=== PATIENT | female | born 2000 | race Caucasian/White ===

== ENCOUNTER 2018-04-02 19:48 | Emergency (ER) | payer SELFPAY ==
--- NOTE | 2018-04-02 20:20 | EDM.PDOC ---
ED HPI GENERAL MEDICAL PROBLEM - General Chief Complaint: Allergic Reaction Stated Complaint: rash on head and ears Time Seen by Provider: 04/02/18 20:04 Source of Information: Reports: Patient History Limitations: Reports: No Limitations - History of Present Illness INITIAL COMMENTS - FREE TEXT/NARRATIVE: HISTORY AND PHYSICAL: History of present illness: Patient is a 17-year-old female who presents to the emergency room with complaints of an allergic reaction. She states approximately 2 weeks ago she was getting her hair dyed when she started to develop itching and redness around her scalp. Since that time she has been picking and scratching at her scalp and ears. The redness has increased and she has some drainage coming from soft tissue of bilateral pinna. She does have some open sores to the base of her neck. Patient has not used any [id number] products. Denies any fever, chills, chest pain, shortness of breath or cough. Denies any GI or symptoms. Review of systems: As per history of present illness and below otherwise all systems reviewed and negative. Past medical history: As per history of present illness and as reviewed below otherwise noncontributory. Surgical history: As per history of present illness and as reviewed below otherwise noncontributory. Social history: No reported history of drug or alcohol abuse. Family history: As per history of present illness and as reviewed below otherwise noncontributory. Physical exam: General: Well-developed and well-nourished 17-year-old female. Alert and oriented. Nontoxic appearing and in no acute distress. HEENT: Atraumatic, normocephalic, pupils equal and reactive bilaterally, negative for conjunctival pallor or scleral icterus, mucous membranes moist, throat clear, neck supple, nontender, trachea midline. No drooling or trismus noted. No meningeal signs. See skin for details. Lungs: Clear to auscultation, breath sounds equal bilaterally, chest nontender. Heart: S1S2, regular rate and rhythm without overt murmur Abdomen: Soft, nondistended, nontender. Negative for masses or hepatosplenomegaly. Negative for costovertebral tenderness. Pelvis: Stable nontender. Genitourinary: Deferred. Rectal: Deferred. Skin: Patient has erythema around the scalp border of her hairline. The soft tissue of the pinna bilaterally is erythematous with mild swelling and tenderness. She does have some clear yellow drainage from the sites. This soft tissue swelling does not extend into the internal canal. Small open sores noted to the nape/base of neck. Extremities: Atraumatic, negative for cords or calf pain. Neurovascular unremarkable. Neuro: Awake, alert, oriented. Cranial nerves II through XII unremarkable. Cerebellum unremarkable. Motor and sensory unremarkable throughout. Exam nonfocal. Notes: Will place patient on Bactrim DS and Medrol Dosepak. Shot of Solu-Medrol and Benadryl while here. Supportive care measures were reviewed and discussed. Signs and symptoms that would prompt her to return to the emergency room were reviewed and discussed. She is new to our community, encouraged her to establish care with a primary care provider for further evaluation and management. She voices understanding and is agreeable to plan of care. Denies any further questions or concerns at this time. Diagnostics: [] Therapeutics: Solumedrol, Bactrim DS, Benadryl Impression: Dermatitis Cellulitis Plan: 1. Take the antibiotic and steroid as prescribed. (You may crush these pills and mix in pudding/apple sauce) 2. Take over the counter benadryl routinely over the next couple days. 3. Avoid hot showers as this can increase itching. 4. Follow up with primary care provider in the next 1-2 days. Return to the ED as needed and as discussed. Definitive disposition and diagnosis as appropriate pending reevaluation and review of above. Duration: Week(s): - Related Data Allergies Allergy/AdvReac Type Severity Reaction Status Date / Time Penicillins Allergy Cannot Verified 04/02/18 19:58 Remember hair dye Allergy Rash Uncoded 04/02/18 19:58 Home Meds: Home Meds . 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 ED EXAM GENERAL NO PERIP PULSE - Physical Exam Exam: See Below (See dictation) Course - Vital Signs Last Recorded V/S: Last Vital Signs Temp 98.3 F 04/02/18 19:48 Pulse 122 H 04/02/18 19:48 Resp 16 04/02/18 19:48 BP 130/77 04/02/18 19:48 Pulse Ox 97 04/02/18 19:48 - Orders/Labs/Meds Meds: Medications Discontinued Medications Generic Name Dose Route Start Last Admin Trade Name Froilan PRN Reason Stop Dose Admin Diphenhydramine HCl 50 mg 04/02/18 20:21 04/02/18 20:36 Benadryl PO 04/02/18 20:22 Not Given ONETIME ONE Diphenhydramine HCl 50 mg 04/02/18 20:34 04/02/18 20:36 Benadryl IM 04/02/18 20:35 50 mg ONETIME ONE Administration Methylprednisolone Sodium Succinate 125 mg 04/02/18 20:21 04/02/18 20:31 Solu-Medrol IM 04/02/18 20:22 125 mg ONETIME ONE Administration Departure - Departure Time of Disposition: 20:20 Disposition: Home, Self-Care 01 Clinical Impression: Dermatitis Cellulitis Qualifiers: Site of cellulitis: head Qualified Code(s): L03.811 - Cellulitis of head [any part, except face] - Discharge Information Instructions: Cellulitis, Adult, [id number] Referrals: PCP,None [Primary Care Provider] - Additional Instructions: The following information is given to patients seen in the emergency department who are being discharged to home. This information is to outline your options for follow-up care. We provide all patients seen in our emergency department with a follow-up referral. The need for follow-up, as well as the timing and circumstances, are variable depending upon the specifics of your emergency department visit. If you don't have a primary care physician on staff, we will provide you with a referral. We always advise you to contact your personal physician following an emergency department visit to inform them of the circumstance of the visit and for follow-up with them and/or the need for any referrals to a consulting specialist. The emergency department will also refer you to a specialist when appropriate. This referral assures that you have the opportunity for follow-up care with a specialist. All of these measure are taken in an effort to provide you with optimal care, which includes your follow-up. Under all circumstances we always encourage you to contact your private physician who remains a resource for coordinating your care. When calling for follow-up care, please make the office aware that this follow-up is from your recent emergency room visit. If for any reason you are refused follow-up, please contact the [facility] Emergency Department at and asked to speak to the emergency department charge nurse. [facility] [address] [place] [id number] 1. Take the antibiotic and steroid as prescribed. (You may crush these pills and mix in pudding/apple sauce) 2. Take over the counter Benadryl routinely over the next couple days. 3. Avoid hot showers as this can increase itching. 4. Follow up with primary care provider in the next 1-2 days. Return to the ED as needed and as discussed.
[2018-04-02] MEDS ORDERED: methylPREDNISolone Sodium Succinate 125 MG/2 ML SDV IM ONE (20:21)
[2018-04-02] MEDS: diphenhydrAMINE 50 MG Cap PO ONE ×2 (20:31→20:36)
[2018-04-02] MEDS ORDERED: diphenhydrAMINE 50 MG/ML SDV IM ONE (20:34)
[2018-04-02] MEDS ORDERED: Sulfamethoxazole/Trimethoprim 800-160 MG Tab PO ONE (20:46)
== END 2018-04-02 21:10 | disposition home or self-care (01) ==
LOC: MW.ED 19:48
DX: L03.811 Cellulitis of head [any part, except face] (principal); L30.9 Dermatitis, unspecified; Z88.0 Allergy status to penicillin; Z91.09 Other allergy status, other than to drugs and biological substances
CPT/HCPCS: 96372; 99283; A9270; J1200; J2930

== ENCOUNTER 2018-04-29 07:48 | Emergency (ER) | payer SELFPAY ==
--- NOTE | 2018-04-29 08:00 | EDM.PDOC ---
ED HPI GENERAL MEDICAL PROBLEM - General Chief Complaint: Allergic Reaction Stated Complaint: ALLERGIC REACTION Time Seen by Provider: 04/29/18 07:57 - History of Present Illness INITIAL COMMENTS - FREE TEXT/NARRATIVE: HISTORY AND PHYSICAL: History of present illness: Patient is a 17-year-old female presents with a concern of presumptive allergic dermatitis related to hair dye she dyed her hair yesterday noted itching and erythema of her scalp is no tongue or lip swelling no trouble breathing no shortness of breath nausea vomiting or other complaints Review of systems: As per history of present illness and below otherwise all systems reviewed and negative. Past medical history: As per history of present illness and as reviewed below otherwise noncontributory. Surgical history: As per history of present illness and as reviewed below otherwise noncontributory. Social history: No reported history of drug or alcohol abuse. Family history: As per history of present illness and as reviewed below otherwise noncontributory. Physical exam: HEENT: Atraumatic, normocephalic, pupils reactive, negative for conjunctival pallor or scleral icterus, mucous membranes moist, throat clear, neck supple, nontender, trachea midline. Patient is noted have some erythema and maculopapular type lesions of her scalp. Lungs: Clear to auscultation, breath sounds equal bilaterally, chest nontender. Heart: S1S2, regular, negative for clicks, rubs, or JVD. Abdomen: Soft, nondistended, nontender. Negative for masses or hepatosplenomegaly. Negative for costovertebral tenderness. Pelvis: Stable nontender. Genitourinary: Deferred. Rectal: Deferred. Extremities: Atraumatic, negative for cords or calf pain. Neurovascular unremarkable. Neuro: Awake, alert, oriented. Cranial nerves II through XII unremarkable. Cerebellum unremarkable. Motor and sensory unremarkable throughout. Exam nonfocal. Diagnostics: None Therapeutics: None Impression: #1 allergic dermatitis Definitive disposition and diagnosis as appropriate pending reevaluation and review of above. - Related Data Allergies Allergy/AdvReac Type Severity Reaction Status Date / Time Penicillins Allergy Cannot Verified 04/29/18 07:54 Remember hair dye Allergy Rash Uncoded 04/02/18 19:58 Home Meds: Home Meds . 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 ED EXAM GENERAL NO PERIP PULSE - Physical Exam Exam: See Below (See dictation) Course - Vital Signs Last Recorded V/S: Last Vital Signs Temp 36.8 C 04/29/18 07:51 Pulse 122 H 04/29/18 07:51 Resp 18 04/29/18 07:51 BP 126/75 04/29/18 07:51 Pulse Ox 98 04/29/18 07:51 Departure - Departure Time of Disposition: 08:00 Disposition: Home, Self-Care 01 Condition: Good Clinical Impression: Dermatitis - Discharge Information *PRESCRIPTION DRUG MONITORING PROGRAM REVIEWED*: Not Applicable *COPY OF PRESCRIPTION DRUG MONITORING REPORT IN PATIENT SILVIA: Not Applicable Additional Instructions: The following information is given to patients seen in the emergency department who are being discharged to home. This information is to outline your options for follow-up care. We provide all patients seen in our emergency department with a follow-up referral. The need for follow-up, as well as the timing and circumstances, are variable depending upon the specifics of your emergency department visit. If you don't have a primary care physician on staff, we will provide you with a referral. We always advise you to contact your personal physician following an emergency department visit to inform them of the circumstance of the visit and for follow-up with them and/or the need for any referrals to a consulting specialist. The emergency department will also refer you to a specialist when appropriate. This referral assures that you have the opportunity for followup care with a specialist. All of these measure are taken in an effort to provide you with optimal care, which includes your followup. Under all circumstances we always encourage you to contact your private physician who remains a resource for coordinating your care. When calling for followup care, please make the office aware that this follow-up is from your recent emergency room visit. If for any reason you are refused follow-up, please contact the [facility] emergency department at and asked to speak to the emergency department charge nurse. Chelly as directed follow-up private medical doctor as needed as discussed return as needed as discussed
== END 2018-04-29 08:08 | disposition home or self-care (01) ==
LOC: MW.ED 07:48
DX: L30.9 Dermatitis, unspecified (principal); F17.210 Nicotine dependence, cigarettes, uncomplicated; Z88.0 Allergy status to penicillin; Z91.09 Other allergy status, other than to drugs and biological substances
CPT/HCPCS: 99282; 99283

== ENCOUNTER 2018-12-06 20:25 | Emergency (ER) | payer SELFPAY ==
[2018-12-06] MEDS ORDERED: Sodium Chloride 0.9% 1,000 ML IV ONE (20:50)
--- NOTE | 2018-12-06 20:54 | EDM.PDOC ---
ED HPI GENERAL MEDICAL PROBLEM - General Chief Complaint: General Stated Complaint: DIZZY, LIGHT HEADED Time Seen by Provider: 12/06/18 20:47 - History of Present Illness INITIAL COMMENTS - FREE TEXT/NARRATIVE: HISTORY AND PHYSICAL: History of present illness: Patient is a 18-year-old white female presents with concern of generalized weakness she states she's been exercising strenuously recently and not eating properly she denies any chance of a fever chills nausea vomiting or other complaints Review of systems: As per history of present illness and below otherwise all systems reviewed and negative. Past medical history: As per history of present illness and as reviewed below otherwise noncontributory. Surgical history: As per history of present illness and as reviewed below otherwise noncontributory. Social history: No reported history of drug or alcohol abuse. Family history: As per history of present illness and as reviewed below otherwise noncontributory. Physical exam: HEENT: Atraumatic, normocephalic, pupils reactive, negative for conjunctival pallor or scleral icterus, mucous membranes dry, throat clear, neck supple, nontender, trachea midline. Lungs: Clear to auscultation, breath sounds equal bilaterally, chest nontender. Heart: S1S2, regular, negative for clicks, rubs, or JVD. Abdomen: Soft, nondistended, nontender. Negative for masses or hepatosplenomegaly. Negative for costovertebral tenderness. Pelvis: Stable nontender. Genitourinary: Deferred. Rectal: Deferred. Extremities: Atraumatic, negative for cords or calf pain. Neurovascular unremarkable. Neuro: Awake, alert, oriented. Cranial nerves II through XII unremarkable. Cerebellum unremarkable. Motor and sensory unremarkable throughout. Exam nonfocal. Diagnostics: CBC CMP UA hCG EKG Therapeutics: Saline 1 L bolus Impression: #1 weakness #2 dehydration Definitive disposition and diagnosis as appropriate pending reevaluation and review of above. - Related Data Allergies Allergy/AdvReac Type Severity Reaction Status Date / Time Penicillins Allergy Cannot Verified 12/06/18 20:40 Remember hair dye Allergy Rash Uncoded 04/02/18 19:58 Home Meds: Home Meds . 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 ED EXAM, GENERAL - Physical Exam Exam: See Below (See dictation) Course - Vital Signs Last Recorded V/S: Last Vital Signs Temp 36.6 C 12/06/18 20:40 Pulse 119 H 12/06/18 20:40 Resp 18 12/06/18 20:40 BP 117/69 12/06/18 20:40 Pulse Ox 98 12/06/18 20:40 - Orders/Labs/Meds Orders: Active Orders 24 hr Category Date Time Status CBC WITH AUTO DIFF [HEME] Stat Lab 12/06/18 20:50 Ordered COMPREHENSIVE METABOLIC PN,CMP [CHEM] Stat Lab 12/06/18 20:50 Ordered HCG QUALITATIVE,SERUM [CHEM] Stat Lab 12/06/18 20:50 Ordered UA RFX FADY AND CULT IF INDIC [URIN] Stat Lab 12/06/18 20:50 Ordered Sodium Chloride 0.9% [Normal Saline] 1,000 ml Med 12/06/18 20:50 Active IV STAT Medication Orders Sodium Chloride (Normal Saline) 1,000 mls @ 999 mls/hr IV STAT ONE Stop: 12/06/18 21:50 Meds: Medications Generic Name Dose Route Start Last Admin Trade Name Freq PRN Reason Stop Dose Admin Sodium Chloride 1,000 mls @ 999 mls/hr 12/06/18 20:50 Normal Saline IV 12/06/18 21:50 STAT ONE Departure - Departure Time of Disposition: 20:53 Disposition: Home, Self-Care 01 Condition: Good Clinical Impression: Dehydration, Encounter for medical screening examination - Discharge Information Referrals: PCP,None [Primary Care Provider] - Additional Instructions: The following information is given to patients seen in the emergency department who are being discharged to home. This information is to outline your options for follow-up care. We provide all patients seen in our emergency department with a follow-up referral. The need for follow-up, as well as the timing and circumstances, are variable depending upon the specifics of your emergency department visit. If you don't have a primary care physician on staff, we will provide you with a referral. We always advise you to contact your personal physician following an emergency department visit to inform them of the circumstance of the visit and for follow-up with them and/or the need for any referrals to a consulting specialist. The emergency department will also refer you to a specialist when appropriate. This referral assures that you have the opportunity for followup care with a specialist. All of these measure are taken in an effort to provide you with optimal care, which includes your followup. Under all circumstances we always encourage you to contact your private physician who remains a resource for coordinating your care. When calling for followup care, please make the office aware that this follow-up is from your recent emergency room visit. If for any reason you are refused follow-up, please contact the [facility] emergency department at and asked to speak to the emergency department charge nurse. Push fluids irregularly follow-up primary medical doctor as needed as discussed and return as needed as discussed - My Orders Last 24 Hours: My Active Orders 12/06/18 20:50 CBC WITH AUTO DIFF [HEME] Stat COMPREHENSIVE METABOLIC PN,CMP [CHEM] Stat HCG QUALITATIVE,SERUM [CHEM] Stat UA RFX FADY AND CULT IF INDIC [URIN] Stat Sodium Chloride 0.9% [Normal Saline] 1,000 ml IV STAT - Assessment/Plan Last 24 Hours: My Active Orders 12/06/18 20:50 CBC WITH AUTO DIFF [HEME] Stat COMPREHENSIVE METABOLIC PN,CMP [CHEM] Stat HCG QUALITATIVE,SERUM [CHEM] Stat UA RFX FADY AND CULT IF INDIC [URIN] Stat Sodium Chloride 0.9% [Normal Saline] 1,000 ml IV STAT
[2018-12-06 21:44] LABS: CHLORIDE,CL 106 mmol/L (98-107); SODIUM,NA 142 mmol/L (136-145)
== END 2018-12-06 21:58 | disposition home or self-care (01) ==
LOC: MW.ED 20:25
DX: E86.0 Dehydration (principal); R53.1 Weakness; F17.210 Nicotine dependence, cigarettes, uncomplicated; Z88.0 Allergy status to penicillin
CPT/HCPCS: 36415; 80053; 81001; 84703; 85025; 87086; 93005; 96360; 99284; J7040

== ENCOUNTER 2019-02-07 19:31 | Emergency (ER) | payer MEDICAID, OTHER ==
[2019-02-07] MEDS ORDERED: Sodium Chloride 0.9% 1,000 ML IV ONE (19:44)
[2019-02-07] MEDS ORDERED: diphenhydrAMINE 50 MG/ML SDV IVPUSH ONE (19:44)
[2019-02-07] MEDS ORDERED: methylPREDNISolone Sodium Succinate 125 MG/2 ML SDV IVPUSH ONE (19:45)
--- NOTE | 2019-02-07 19:46 | EDM.PDOC ---
ED HPI GENERAL MEDICAL PROBLEM - General Chief Complaint: Skin Complaint Stated Complaint: HIVES/RASH Time Seen by Provider: 02/07/19 19:33 Source of Information: Reports: Patient History Limitations: Reports: No Limitations - History of Present Illness INITIAL COMMENTS - FREE TEXT/NARRATIVE: HISTORY AND PHYSICAL: History of present illness: Patient is a 18-year-old female who presents to the emergency room with complaints of rash to her hands and feet 1 week. She states that this rash has not worsened, although continues to have a burning and itching sensation. Rash is sparse and localized to hands and feet (sparing the rossi and plantar surface). She has not used any [id number] products to help alleviate her symptoms. Denies any contact with any triggering materials. Patient denies any fever, chills, headache, change in vision, syncope or near syncope. Denies any chest pain, back pain, shortness of breath or cough. Denies any abdominal pain, nausea, vomiting, diarrhea, constipation or dysuria. Has not noted any blood in urine or stool. Patient has been eating and drinking appropriately. Review of systems: As per history of present illness and below otherwise all systems reviewed and negative. Past medical history: As per history of present illness and as reviewed below otherwise noncontributory. Surgical history: As per history of present illness and as reviewed below otherwise noncontributory. Social history: See social history for further information Family history: As per history of present illness and as reviewed below otherwise noncontributory. Physical exam: General: Well-developed and well-nourished 18-year-old female. Alert and oriented. Nontoxic appearing and in no acute distress. HEENT: Atraumatic, normocephalic, pupils equal and reactive bilaterally, negative for conjunctival pallor or scleral icterus, mucous membranes moist, throat clear, neck supple, nontender, trachea midline. No drooling or trismus noted. No meningeal signs. No hot potato voice noted. Lungs: Clear to auscultation, breath sounds equal bilaterally, chest nontender. Heart: S1S2, regular rate and rhythm without overt murmur Abdomen: Soft, nondistended, nontender. Skin: Intact, warm, dry. Sparse raised flat rash to tops of hands and feet ( sparing the plantar and rossi surfaces). Extremities: Atraumatic, moves all extremities per self without difficulty or deficits, negative for cords or calf pain. Neurovascular unremarkable. Neuro: Awake, alert, oriented. Cranial nerves II through XII unremarkable. Cerebellum unremarkable. Motor and sensory unremarkable throughout. Exam nonfocal. Notes: Patient does not have any oral lesions. The raised rash is to the tops of her hand and feet, sparingly. Due to the patient's tachycardia I am going to give her some fluids along with routine lab work. Patient is agreeable. Vital signs have improved. Lab work is unremarkable. Medication education was reviewed and discussed. Supportive care measures were reviewed and discussed. Voices understanding and is agreeable to plan of care. Denies any further questions or concerns at this time. Diagnostics: CBC, CMP Therapeutics: IV fluids, Solu-Medrol, Benadryl Prescription: Medrol Dosepak Visteral Impression: Dermatitis Plan: 1. Take the medications as prescribed. 2. May use topical ointments for itching as we discussed. 3. Follow-up with your primary care provider as we discussed. Return to the ED as needed and as discussed. Definitive disposition and diagnosis as appropriate pending reevaluation and review of above. hands/feet Pain Score (Numeric/FACES): 6 - Related Data Allergies Allergy/AdvReac Type Severity Reaction Status Date / Time Penicillins Allergy Cannot Verified 02/07/19 19:39 Remember hair dye Allergy Rash Uncoded 02/07/19 19:39 Home Meds: Home Meds . 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 ED EXAM, SKIN/RASH Exam: See Below (See dictation) Course - Vital Signs Last Recorded V/S: Last Vital Signs Temp 97.4 F 02/07/19 19:38 Pulse 122 H 02/07/19 19:38 Resp 16 02/07/19 19:38 BP 116/77 02/07/19 19:38 Pulse Ox 95 02/07/19 19:38 - Orders/Labs/Meds Orders: Active Orders 24 hr Category Date Time Status COMPREHENSIVE METABOLIC PN,CMP [CHEM] Stat Lab 02/07/19 19:50 Received Sodium Chloride 0.9% [Normal Saline] 1,000 ml Med 02/07/19 19:44 Active IV STAT Medication Orders Sodium Chloride (Normal Saline) 1,000 mls @ 999 mls/hr IV STAT ONE Stop: 02/07/19 20:44 Last Admin: 02/07/19 19:52 Dose: 999 mls/hr Labs: Laboratory Tests 02/07/19 Range/Units 19:50 WBC 6.95 (4.0-11.0) K/uL RBC 5.14 (4.30-5.90) M/uL Hgb 15.3 (12.0-16.0) g/dL Hct 43.9 (36.0-46.0) % MCV 85.4 (80.0-98.0) fL MCH 29.8 (27.0-32.0) pg MCHC 34.9 (31.0-37.0) g/dL RDW Std Deviation 41.1 (28.0-62.0) fl RDW Coeff of Charlette 13 (11.0-15.0) % Plt Count 343 (150-400) K/uL MPV 9.90 (7.40-12.00) fL Neut % (Auto) 62.1 (48.0-80.0) % Lymph % (Auto) 28.5 (16.0-40.0) % [place] % (Auto) 7.5 (0.0-15.0) % Eos % (Auto) 1.6 (0.0-7.0) % Baso % (Auto) 0.3 (0.0-1.5) % Neut # (Auto) 4.3 (1.4-5.7) K/uL Lymph # (Auto) 2.0 (0.6-2.4) K/uL [place] # (Auto) 0.5 (0.0-0.8) K/uL Eos # (Auto) 0.1 (0.0-0.7) K/uL Baso # (Auto) 0.0 (0.0-0.1) K/uL Nucleated RBC % 0.0 /100WBC Nucleated RBCs # 0 K/uL Meds: Medications Generic Name Dose Route Start Last Admin Trade Name Froilan PRN Reason Stop Dose Admin Sodium Chloride 1,000 mls @ 999 mls/hr 02/07/19 19:44 02/07/19 19:52 Normal Saline IV 02/07/19 20:44 999 mls/hr STAT ONE Administration Discontinued Medications Generic Name Dose Route Start Last Admin Trade Name Froilan PRN Reason Stop Dose Admin Diphenhydramine HCl 25 mg 02/07/19 19:44 02/07/19 19:54 Benadryl IVPUSH 02/07/19 19:45 25 mg ONETIME ONE Administration Methylprednisolone Sodium Succinate 125 mg 02/07/19 19:45 02/07/19 19:54 Solu-Medrol IVPUSH 02/07/19 19:46 125 mg ONETIME ONE Administration Departure - Departure Time of Disposition: 20:05 Disposition: Home, Self-Care 01 Clinical Impression: Dermatitis - Discharge Information Instructions: Atopic Dermatitis Referrals: PCP,None [Primary Care Provider] - Forms: ED Department Discharge Additional Instructions: The following information is given to patients seen in the emergency department who are being discharged to home. This information is to outline your options for follow-up care. We provide all patients seen in our emergency department with a follow-up referral. The need for follow-up, as well as the timing and circumstances, are variable depending upon the specifics of your emergency department visit. If you don't have a primary care physician on staff, we will provide you with a referral. We always advise you to contact your personal physician following an emergency department visit to inform them of the circumstance of the visit and for follow-up with them and/or the need for any referrals to a consulting specialist. The emergency department will also refer you to a specialist when appropriate. This referral assures that you have the opportunity for follow-up care with a specialist. All of these measure are taken in an effort to provide you with optimal care, which includes your follow-up. Under all circumstances we always encourage you to contact your private physician who remains a resource for coordinating your care. When calling for follow-up care, please make the office aware that this follow-up is from your recent emergency room visit. If for any reason you are refused follow-up, please contact the [facility] Emergency Department at and asked to speak to the emergency department charge nurse. [facility] [address] [place] [address] [id number] 1. Take the medications as prescribed. 2. May use topical ointments for itching as we discussed. 3. Follow-up with your primary care provider as we discussed. Return to the ED as needed and as discussed. - My Orders Last 24 Hours: My Active Orders 02/07/19 19:44 Sodium Chloride 0.9% [Normal Saline] 1,000 ml IV STAT 02/07/19 19:50 COMPREHENSIVE METABOLIC PN,CMP [CHEM] Stat - Assessment/Plan Last 24 Hours: My Active Orders 02/07/19 19:44 Sodium Chloride 0.9% [Normal Saline] 1,000 ml IV STAT 02/07/19 19:50 COMPREHENSIVE METABOLIC PN,CMP [CHEM] Stat
[2019-02-07 20:18] LABS: CHLORIDE,CL 102 mmol/L (98-107); SODIUM,NA 138 mmol/L (136-145)
== END 2019-02-07 20:35 | disposition home or self-care (01) ==
LOC: MW.ED 19:31
DX: L30.9 Dermatitis, unspecified (principal); F17.210 Nicotine dependence, cigarettes, uncomplicated; Z88.0 Allergy status to penicillin
CPT/HCPCS: 80053; 85025; 96361; 96374; 96375; 99283; J1200; J2930; J7040

== ENCOUNTER 2019-04-17 22:16 | Emergency (ER) | payer MEDICAID ==
[2019-04-17] MEDS ORDERED: Sodium Chloride 0.9% 10 ML Syringe FLUSH PRN (22:41)
[2019-04-17] MEDS ORDERED: Sodium Chloride 0.9% 2.5 ML Syringe FLUSH PRN (22:41)
--- NOTE | 2019-04-17 22:46 | EDM.PDOC ---
ED HPI GENERAL MEDICAL PROBLEM - General Chief Complaint: Abdominal Pain Stated Complaint: PT HAS STOMACH PAIN Time Seen by Provider: 04/17/19 22:23 Source of Information: Reports: Patient History Limitations: Reports: No Limitations - History of Present Illness INITIAL COMMENTS - FREE TEXT/NARRATIVE: HISTORY AND PHYSICAL: History of present illness: Presents reporting abdominal pain that started earlier today. Accompanied by mild nausea but no vomiting, diarrhea, dysuria, fever or vaginal symptoms. She had a brown formed BM earlier today. She is 10 days late on her menses as she has been trying to get . She had a negative test 3 days ago at home. Eating and drinking normally Review of systems: As per history of present illness and below otherwise all systems reviewed and negative. Past medical history: As per history of present illness and as reviewed below otherwise noncontributory. Surgical history: As per history of present illness and as reviewed below otherwise noncontributory. Social history: No reported history of drug or alcohol abuse. Family history: As per history of present illness and as reviewed below otherwise noncontributory. Physical exam: HEENT: Atraumatic, normocephalic, pupils reactive, negative for conjunctival pallor or scleral icterus, mucous membranes moist, throat clear, neck supple, nontender, trachea midline. Lungs: Clear to auscultation, breath sounds equal bilaterally, chest nontender. Heart: S1S2, regular, negative for clicks, rubs, or JVD. Abdomen: Soft, nondistended. Negative for masses or hepatosplenomegaly. Negative for costovertebral tenderness. Tenderness over the bladder Pelvis: Stable nontender. Genitourinary: Deferred. Rectal: Deferred. Extremities: Atraumatic, negative for cords or calf pain. Neurovascular unremarkable. Neuro: Awake, alert, oriented. Cranial nerves II through XII unremarkable. Cerebellum unremarkable. Motor and sensory unremarkable throughout. Exam nonfocal. Diagnostics: [] Therapeutics: [] Impression: [] Plan: [] Definitive disposition and diagnosis as appropriate pending reevaluation and review of above. Abdomen Pain Score (Numeric/FACES): 5 - Related Data Allergies Allergy/AdvReac Type Severity Reaction Status Date / Time Penicillins Allergy Rash Verified 04/17/19 22:26 hair dye Allergy Rash Uncoded 04/17/19 22:26 Home Meds: Home Meds . 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 History: Reports: None Neurological History: Reports: None Psychiatric History: Reports: None Endocrine/Metabolic History: Reports: None Hematologic History: Reports: None Immunologic History: Reports: None Oncologic (Cancer) History: Reports: None Dermatologic History: Reports: None - Infectious Disease History Infectious Disease History: Reports: None - Past Surgical History Head Surgeries/Procedures: Reports: None Social & Family History - Family History Family Medical History: Noncontributory - Tobacco Use Smoking Status *Q: Current Every Day Smoker Years of Tobacco use: 4 Packs/Tins Daily: 1 - Caffeine Use Caffeine Use: Reports: Coffee - Recreational Drug Use Recreational Drug Use: No ED ROS GENERAL - Review of Systems Review Of Systems: ROS reveals no pertinent complaints other than HPI. ED EXAM, GI/ABD - Physical Exam Exam: See Below Exam Limited By: No Limitations General Appearance: Alert, No Apparent Distress Ears: Normal External Exam Nose: Normal Inspection Throat/Mouth: Normal Inspection Head: Atraumatic, Normocephalic Neck: Normal Inspection Respiratory/Chest: No Respiratory Distress, Lungs Clear, Normal Breath Sounds Cardiovascular: Normal Peripheral Pulses, Regular Rate, Rhythm, No Murmur GI/Abdominal Exam: Normal Bowel Sounds, Soft, No Distention, Tender (Over bladder) Back Exam: Normal Inspection Extremities: Normal Inspection Neurological: Alert, Oriented Psychiatric: Normal Affect, Normal Mood Skin Exam: Warm, Dry, Intact, Normal Color, No Rash Lymphatic: No Adenopathy Course - Vital Signs Last Recorded V/S: Last Vital Signs Temp 36.4 C 04/17/19 22:26 Pulse 108 H 04/17/19 22:26 Resp 18 04/17/19 22:26 BP 115/75 04/17/19 22:26 Pulse Ox 99 04/17/19 22:26 - Orders/Labs/Meds Orders: Active Orders 24 hr Category Date Time Status Sodium Chloride 0.9% [Saline Flush] Med 04/17/19 22:41 Ordered 10 ml FLUSH ASDIRECTED PRN Sodium Chloride 0.9% [Saline Flush] Med 04/17/19 22:41 Ordered 2.5 ml FLUSH ASDIRECTED PRN Saline Lock Insert [OM.PC] Stat Oth 04/17/19 22:41 Ordered Medication Orders Sodium Chloride (Saline Flush) 10 ml FLUSH ASDIRECTED PRN PRN Reason: Keep Vein Open Sodium Chloride (Saline Flush) 2.5 ml FLUSH ASDIRECTED PRN PRN Reason: Keep Vein Open Labs: Laboratory Tests 04/17/19 04/17/19 04/17/19 Range/Units 22:31 22:31 23:01 WBC 8.54 (4.0-11.0) K/uL RBC 5.01 (4.30-5.90) M/uL Hgb 14.9 (12.0-16.0) g/dL Hct 42.8 (36.0-46.0) % MCV 85.4 (80.0-98.0) fL MCH 29.7 (27.0-32.0) pg MCHC 34.8 (31.0-37.0) g/dL RDW Std Deviation 40.5 (28.0-62.0) fl RDW Coeff of Charlette 13 (11.0-15.0) % Plt Count 323 (150-400) K/uL MPV 9.30 (7.40-12.00) fL Neut % (Auto) 65.6 (48.0-80.0) % Lymph % (Auto) 26.3 (16.0-40.0) % [place] % (Auto) 6.8 (0.0-15.0) % Eos % (Auto) 1.1 (0.0-7.0) % Baso % (Auto) 0.2 (0.0-1.5) % Neut # (Auto) 5.6 (1.4-5.7) K/uL Lymph # (Auto) 2.3 (0.6-2.4) K/uL [place] # (Auto) 0.6 (0.0-0.8) K/uL Eos # (Auto) 0.1 (0.0-0.7) K/uL Baso # (Auto) 0.0 (0.0-0.1) K/uL Nucleated RBC % 0.0 /100WBC Nucleated RBCs # 0 K/uL Sodium (136-145) mmol/L Potassium (3.5-5.1) mmol/L Chloride (98-107) mmol/L Carbon Dioxide (21.0-32.0) mmol/L BUN (7.0-18.0) mg/dL Creatinine (0.6-1.0) mg/dL Est Cr Clr Drug Dosing mL/min Estimated GFR (MDRD) ml/min Glucose (74-106) mg/dL Calcium (8.5-10.1) mg/dL Total Bilirubin (0.2-1.0) mg/dL AST (15-37) IU/L ALT (14-63) IU/L Alkaline Phosphatase (46-116) U/L Total Protein (6.4-8.2) g/dL Albumin (3.4-5.0) g/dL Globulin (2.6-4.0) g/dL Albumin/Globulin Ratio (0.9-1.6) Urine Color YELLOW Urine Appearance CLEAR Urine pH 5.5 (5.0-8.0) Ur Specific [place] <= 1.005 (1.001-1.035) Urine Protein NEGATIVE (NEGATIVE) mg/dL Urine Glucose (UA) NEGATIVE (NEGATIVE) mg/dL Urine Ketones NEGATIVE (NEGATIVE) mg/dL Urine Occult Blood NEGATIVE (NEGATIVE) Urine Nitrite NEGATIVE (NEGATIVE) Urine Bilirubin NEGATIVE (NEGATIVE) Urine Urobilinogen 0.2 (<2.0) EU/dL Ur Leukocyte Esterase NEGATIVE (NEGATIVE) Urine HCG, Qual NEGATIVE (NEGATIVE) 04/17/19 Range/Units 23:01 WBC (4.0-11.0) K/uL RBC (4.30-5.90) M/uL Hgb (12.0-16.0) g/dL Hct (36.0-46.0) % MCV (80.0-98.0) fL MCH (27.0-32.0) pg MCHC (31.0-37.0) g/dL RDW Std Deviation (28.0-62.0) fl RDW Coeff of Charlette (11.0-15.0) % Plt Count (150-400) K/uL MPV (7.40-12.00) fL Neut % (Auto) (48.0-80.0) % Lymph % (Auto) (16.0-40.0) % [place] % (Auto) (0.0-15.0) % Eos % (Auto) (0.0-7.0) % Baso % (Auto) (0.0-1.5) % Neut # (Auto) (1.4-5.7) K/uL Lymph # (Auto) (0.6-2.4) K/uL [place] # (Auto) (0.0-0.8) K/uL Eos # (Auto) (0.0-0.7) K/uL Baso # (Auto) (0.0-0.1) K/uL Nucleated RBC % /100WBC Nucleated RBCs # K/uL Sodium 140 (136-145) mmol/L Potassium 3.4 L (3.5-5.1) mmol/L Chloride 104 (98-107) mmol/L Carbon Dioxide 23.1 (21.0-32.0) mmol/L BUN 7 (7.0-18.0) mg/dL Creatinine 0.6 (0.6-1.0) mg/dL Est Cr Clr Drug Dosing 112.86 mL/min Estimated GFR (MDRD) > 60.0 ml/min Glucose 90 (74-106) mg/dL Calcium 9.9 (8.5-10.1) mg/dL Total Bilirubin 0.3 (0.2-1.0) mg/dL AST 10 L (15-37) IU/L ALT 16 (14-63) IU/L Alkaline Phosphatase 157 H (46-116) U/L Total Protein 8.7 H (6.4-8.2) g/dL Albumin 4.5 (3.4-5.0) g/dL Globulin 4.2 H (2.6-4.0) g/dL Albumin/Globulin Ratio 1.1 (0.9-1.6) Urine Color Urine Appearance Urine pH (5.0-8.0) Ur Specific [place] (1.001-1.035) Urine Protein (NEGATIVE) mg/dL Urine Glucose (UA) (NEGATIVE) mg/dL Urine Ketones (NEGATIVE) mg/dL Urine Occult Blood (NEGATIVE) Urine Nitrite (NEGATIVE) Urine Bilirubin (NEGATIVE) Urine Urobilinogen (<2.0) EU/dL Ur Leukocyte Esterase (NEGATIVE) Urine HCG, Qual (NEGATIVE) Meds: Medications Generic Name Dose Route Start Last Admin Trade Name Froilan PRN Reason Stop Dose Admin Sodium Chloride 10 ml 04/17/19 22:41 Saline Flush FLUSH ASDIRECTED PRN Keep Vein Open Sodium Chloride 2.5 ml 04/17/19 22:41 Saline Flush FLUSH ASDIRECTED PRN Keep Vein Open - Re-Assessments/Exams Free Text/Narrative Re-Assessment/Exam: 04/17/19 23:43 Patient states that her pain is better. She has been sitting visiting and playing on her phone the entire time she has been here. Departure - Departure Time of Disposition: 23:44 Disposition: Home, Self-Care 01 Clinical Impression: Abdominal pain Qualifiers: Abdominal location: unspecified location Qualified Code(s): R10.9 - Unspecified abdominal pain - Discharge Information Referrals: PCP,None [Primary Care Provider] - [facility] [Outside] [facility] [Outside] Forms: ED Department Discharge Additional Instructions: The following information is given to patients seen in the emergency department who are being discharged to home. This information is to outline your options for follow-up care. We provide all patients seen in our emergency department with a follow-up referral. The need for follow-up, as well as the timing and circumstances, are variable depending upon the specifics of your emergency department visit. If you don't have a primary care physician on staff, we will provide you with a referral. We always advise you to contact your personal physician following an emergency department visit to inform them of the circumstance of the visit and for follow-up with them and/or the need for any referrals to a consulting specialist. The emergency department will also refer you to a specialist when appropriate. This referral assures that you have the opportunity for follow-up care with a specialist. All of these measure are taken in an effort to provide you with optimal care, which includes your follow-up. Under all circumstances we always encourage you to contact your private physician who remains a resource for coordinating your care. When calling for follow-up care, please make the office aware that this follow-up is from your recent emergency room visit. If for any reason you are refused follow-up, please contact the [facility] Emergency Department at and asked to speak to the emergency department charge nurse. 1. Follow-up in the clinic. Return promptly for vomiting, fevers, worsening or not improving symptoms - My Orders Last 24 Hours: My Active Orders 04/17/19 22:41 Sodium Chloride 0.9% [Saline Flush] 10 ml FLUSH ASDIRECTED PRN Sodium Chloride 0.9% [Saline Flush] 2.5 ml FLUSH ASDIRECTED PRN Saline Lock Insert [OM.PC] Stat - Assessment/Plan Last 24 Hours: My Active Orders 04/17/19 22:41 Sodium Chloride 0.9% [Saline Flush] 10 ml FLUSH ASDIRECTED PRN Sodium Chloride 0.9% [Saline Flush] 2.5 ml FLUSH ASDIRECTED PRN Saline Lock Insert [OM.PC] Stat
[2019-04-17 23:40] LABS: BLOOD UREA NITROGEN,BUN 7 mg/dL (7.0-18.0); CARBON DIOXIDE,CO2 23.1 mmol/L (21.0-32.0); CHLORIDE,CL 104 mmol/L (98-107); GLUCOSE RANDOM 90 mg/dL (74-106); POTASSIUM,K 3.4 mmol/L (3.5-5.1); SODIUM,NA 140 mmol/L (136-145)
== END 2019-04-17 23:59 | disposition home or self-care (01) ==
LOC: MW.ED 22:16
DX: R10.9 Unspecified abdominal pain (principal); F17.210 Nicotine dependence, cigarettes, uncomplicated; Z88.0 Allergy status to penicillin; Z91.041 Radiographic dye allergy status
CPT/HCPCS: 36415; 80053; 81003; 81025; 85025; 99282; 99284

== ENCOUNTER 2019-08-25 19:52 | Emergency (ER) | payer MEDICAID ==
[2019-08-25] MEDS ORDERED: Lidocaine 2% Viscous Solution 15 ML Cup PO ONE (20:28)
[2019-08-25] MEDS ORDERED: Benzocaine 20% Topical Spray UD MUCMEM ONE (20:28)
--- NOTE | 2019-08-25 20:33 | EDM.PDOC ---
ED HPI GENERAL MEDICAL PROBLEM - General Chief Complaint: ENT Problem Stated Complaint: TOOTHACHE Time Seen by Provider: 08/25/19 20:15 - History of Present Illness INITIAL COMMENTS - FREE TEXT/NARRATIVE: HISTORY AND PHYSICAL: History of present illness: The patient is a 19-year-old female who presents with complaints of right upper premolar dental pain for which she has a ready seen a dentist and has a root canal scheduled for mid September and says that the pain has worsened. She otherwise is eating and drinking normally and she says she is 20 weeks without any complaints such as abdominal pain vaginal bleeding. She says the baby is moving and she has no complaints or issues with the . She says that she has some swelling of the gum and she is concerned at that area. She has used [id number] meds and says that they are not working. Review of systems: As per history of present illness and below otherwise all systems reviewed and negative. Past medical history: As per history of present illness and as reviewed below otherwise noncontributory. Surgical history: As per history of present illness and as reviewed below otherwise noncontributory. Social history: No reported history of drug or alcohol abuse. Family history: As per history of present illness and as reviewed below otherwise noncontributory. Physical exam: well Developed well-nourished thin female who is nontoxic and vital signs are noted by me. There is no gross evidence of facial swelling seen on visual inspection. HEENT: Atraumatic, normocephalic, pupils reactive, negative for conjunctival pallor or scleral icterus, mucous membranes moist, throat clear, neck supple, nontender, trachea midline. There is no gross cervical adenopathy or nuchal rigidity and the tonsils are mildly enlarged but not reddened and there are no exudates nor is the uvula deviated, at the area of the right upper premolar area there is some mild gum swelling and no dental disease is appreciated but there is tenderness with tapping Lungs: Clear to auscultation, breath sounds equal bilaterally, chest nontender. Heart: S1S2, regularrate and rhythm no overt murmurs Abdomen: Soft, nondistended, nontender. Gravid uterus Pelvis: Stable nontender. Genitourinary: Deferred. Rectal: Deferred. Extremities: Atraumatic, negative for cords or calf pain. Neurovascular unremarkable. Neuro: Awake, alert, oriented. Cranial nerves II through XII unremarkable. Cerebellum unremarkable. Motor and sensory unremarkable throughout. Exam nonfocal. Diagnostics: [] Therapeutics: dental balls Impression: dental pain Definitive disposition and diagnosis as appropriate pending reevaluation and review of above. R upper tooth Pain Score (Numeric/FACES): 7 - Related Data Allergies Allergy/AdvReac Type Severity Reaction Status Date / Time Penicillins Allergy Rash Verified 08/25/19 20:18 hair dye Allergy Rash Uncoded 08/25/19 20:18 Home Meds: Home Meds . 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: Musculoskeletal History: Reports: None Neurological History: Reports: None Psychiatric History: Reports: None Endocrine/Metabolic History: Reports: None Hematologic History: Reports: None Immunologic History: Reports: None Oncologic (Cancer) History: Reports: None Dermatologic History: Reports: None - Infectious Disease History Infectious Disease History: Reports: None - Past Surgical History Head Surgeries/Procedures: Reports: None Social & Family History - Family History Family Medical History: Noncontributory - Tobacco Use Smoking Status *Q: Current Every Day Smoker Years of Tobacco use: 3 Packs/Tins Daily: 0.5 - Caffeine Use Caffeine Use: Reports: Coffee - Recreational Drug Use Recreational Drug Use: No ED ROS GENERAL - Review of Systems Review Of Systems: Comprehensive ROS is negative, except as noted in HPI. ED EXAM, GENERAL - Physical Exam Exam: See Below (see Dictation) Course - Vital Signs Last Recorded V/S: Last Vital Signs Temp 36.3 C 08/25/19 20:15 Pulse 118 H 08/25/19 20:15 Resp 18 08/25/19 20:15 BP 107/70 08/25/19 20:15 Pulse Ox 98 08/25/19 20:15 - Orders/Labs/Meds Meds: Medications Discontinued Medications Generic Name Dose Route Start Last Admin Trade Name Freq PRN Reason Stop Dose Admin Benzocaine 2 each 08/25/19 20:28 Hurricaine One 20% MUCMEM 08/25/19 20:29 ONETIME ONE Lidocaine HCl 15 ml 08/25/19 20:28 Xylocaine 2% Viscous PO 08/25/19 20:29 ONETIME ONE Departure - Departure Time of Disposition: 20:32 Disposition: Home, Self-Care 01 Condition: Good Clinical Impression: Pain, dental - Discharge Information Referrals: PCP,None [Primary Care Provider] - Additional Instructions: The following information is given to patients seen in the emergency department who are being discharged to home. This information is to outline your options for follow-up care. We provide all patients seen in our emergency department with a follow-up referral. The need for follow-up, as well as the timing and circumstances, are variable depending upon the specifics of your emergency department visit. If you don't have a primary care physician on staff, we will provide you with a referral. We always advise you to contact your personal physician following an emergency department visit to inform them of the circumstance of the visit and for follow-up with them and/or the need for any referrals to a consulting specialist. The emergency department will also refer you to a specialist when appropriate. This referral assures that you have the opportunity for followup care with a specialist. All of these measure are taken in an effort to provide you with optimal care, which includes your followup. Under all circumstances we always encourage you to contact your private physician who remains a resource for coordinating your care. When calling for followup care, please make the office aware that this follow-up is from your recent emergency room visit. If for any reason you are refused follow-up, please contact the [facility] emergency department at and ask to speak to the emergency department charge nurse. [facility] [address] [place] [id number] Continue to follow with your provider for your and use medications as prescribed including the dental balls for your dental pain. Follow-up with your dentist locally and return to ER as needed and as discussed. Sepsis Event Note - Evaluation Sepsis Screening Result: No Definite Risk - Focused Exam Vital Signs: Vital Signs Temp Pulse Resp BP Pulse Ox 08/25/19 20:15 36.3 C 118 H 18 107/70 98 Date Exam was Performed: 08/25/19 Time Exam was Performed: 20:29
== END 2019-08-25 20:53 | disposition home or self-care (01) ==
LOC: MW.ED 19:52
DX: K08.89 Other specified disorders of teeth and supporting structures (principal); F17.210 Nicotine dependence, cigarettes, uncomplicated; Z88.0 Allergy status to penicillin; Z91.048 Other nonmedicinal substance allergy status
CPT/HCPCS: 99282; A9270

== ENCOUNTER 2019-08-31 20:26 | Emergency (ER) | payer MEDICAID ==
--- NOTE | 2019-08-31 20:55 | EDM.PDOC ---
ED HPI GENERAL MEDICAL PROBLEM - General Chief Complaint: General Stated Complaint: toothache Time Seen by Provider: 08/31/19 20:50 Source of Information: Reports: Patient History Limitations: Reports: No Limitations - History of Present Illness INITIAL COMMENTS - FREE TEXT/NARRATIVE: HISTORY AND PHYSICAL: History of present illness: Patient is a 19-year-old female presents to the ED with complaint of tooth pain. She states she was seen a few days ago and prescribed amoxicillin but she is allergic to penicillins so she did not take this. She states she is having pain of the right upper molar. She is schedule for a root canal next month. She denies fevers, chills, nausea, vomiting. Review of systems: As per history of present illness and below otherwise all systems reviewed and negative. Past medical history: As per history of present illness and as reviewed below otherwise noncontributory. Surgical history: As per history of present illness and as reviewed below otherwise noncontributory. Social history: No reported history of drug or alcohol abuse. Family history: As per history of present illness and as reviewed below otherwise noncontributory. Physical exam: General: Patient sitting comfortably in no acute distress and nontoxic appearing HEENT: Atraumatic, normocephalic, pupils reactive, negative for conjunctival pallor or scleral icterus, mucous membranes moist, throat clear, neck supple, nontender, trachea midline. No meningeal signs. Lungs: Clear to auscultation, breath sounds equal bilaterally, chest nontender. Heart: S1S2, regular, negative for clicks, rubs, or overt murmur. Abdomen: Soft, nondistended, nontender. Negative for masses or hepatosplenomegaly. Negative for costovertebral tenderness. No rigidity, rebound , guarding. Pelvis: Stable nontender. Genitourinary: Deferred. Rectal: Deferred. Extremities: Atraumatic, negative for cords or calf pain. Neurovascular unremarkable. Neuro: Awake, alert, oriented. Cranial nerves II through XII unremarkable. Cerebellum unremarkable. Motor and sensory unremarkable throughout. Exam nonfocal. Notes: Diagnostics: [] Therapeutics: [] Prescriptions: Clindamycin Impression: Dentalgia, dental infection Definitive disposition and diagnosis as appropriate pending reevaluation and review of above. 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 currently 20 weeks Musculoskeletal History: Reports: None Neurological History: Reports: None Psychiatric History: Reports: None Endocrine/Metabolic History: Reports: None Hematologic History: Reports: None Immunologic History: Reports: None Oncologic (Cancer) History: Reports: None Dermatologic History: Reports: None - Infectious Disease History Infectious Disease History: Reports: None - Past Surgical History Head Surgeries/Procedures: Reports: None Social & Family History - Family History Family Medical History: Noncontributory - Tobacco Use Smoking Status *Q: Current Every Day Smoker Years of Tobacco use: 6 Packs/Tins Daily: 0.5 - Caffeine Use Caffeine Use: Reports: None - Recreational Drug Use Recreational Drug Use: No ED ROS GENERAL - Review of Systems Review Of Systems: Comprehensive ROS is negative, except as noted in HPI. ED EXAM, GENERAL - Physical Exam Exam: See Below (see dictation) Course - Vital Signs Last Recorded V/S: Last Vital Signs Temp 97.8 F 08/31/19 20:38 Pulse 100 08/31/19 20:38 Resp 16 08/31/19 20:38 BP 114/72 08/31/19 20:38 Pulse Ox 99 08/31/19 20:38 Departure - Departure Time of Disposition: 20:50 Disposition: Home, Self-Care 01 Condition: Good Clinical Impression: Dental infection, Dentalgia - Discharge Information Referrals: PCP,None [Primary Care Provider] - Additional Instructions: The following information is given to patients seen in the emergency department who are being discharged to home. This information is to outline your options for follow-up care. We provide all patients seen in our emergency department with a follow-up referral. The need for follow-up, as well as the timing and circumstances, are variable depending upon the specifics of your emergency department visit. If you don't have a primary care physician on staff, we will provide you with a referral. We always advise you to contact your personal physician following an emergency department visit to inform them of the circumstance of the visit and for follow-up with them and/or the need for any referrals to a consulting specialist. The emergency department will also refer you to a specialist when appropriate. This referral assures that you have the opportunity for follow-up care with a specialist. All of these measure are taken in an effort to provide you with optimal care, which includes your follow-up. Under all circumstances we always encourage you to contact your private physician who remains a resource for coordinating your care. When calling for follow-up care, please make the office aware that this follow-up is from your recent emergency room visit. If for any reason you are refused follow-up, please contact the [facility] Emergency Department at and asked to speak to the emergency department charge nurse. [facility] [address] [place] [address] [id number] [address] [address] Take antibiotic as instructed Follow up with dentist Return to ED as needed as discussed Sepsis Event Note - Evaluation Sepsis Screening Result: No Definite Risk - Focused Exam Vital Signs: Vital Signs Temp Pulse Resp BP Pulse Ox 08/31/19 20:38 97.8 F 100 16 114/72 99 Date Exam was Performed: 08/31/19 Time Exam was Performed: 20:50
== END 2019-08-31 21:00 | disposition home or self-care (01) ==
LOC: MW.ED 20:26
DX: K04.7 Periapical abscess without sinus (principal); F17.210 Nicotine dependence, cigarettes, uncomplicated; Z88.0 Allergy status to penicillin; Z91.018 Allergy to other foods
CPT/HCPCS: 99282

== ENCOUNTER 2019-09-11 17:21 | Emergency (ER) | payer MEDICAID ==
[2019-09-11] MEDS ORDERED: Lidocaine 2% Viscous Solution 15 ML Cup PO ONE (17:52)
[2019-09-11] MEDS ORDERED: Benzocaine 20% Topical Spray UD MUCMEM ONE (17:52)
--- NOTE | 2019-09-11 17:58 | EDM.PDOC ---
ED HPI GENERAL MEDICAL PROBLEM - General Chief Complaint: General Stated Complaint: tooth pain Time Seen by Provider: 09/11/19 17:57 - History of Present Illness INITIAL COMMENTS - FREE TEXT/NARRATIVE: HISTORY AND PHYSICAL: History of present illness: Patient is a 19-year-old female 23 weeks gestation presents to the ED with complaint of dental pain. Patient was seen by me a couple of weeks ago and given clindamycin for dentalgia and dental infection. She states she went on vacation and just got home and just started the antibiotic today. She states she is having a lot of pain and tylenol and dental balls are not helping. She denies fevers, chills, nausea, vomiting, trismus, difficulty swallowing or breathing. Review of systems: As per history of present illness and below otherwise all systems reviewed and negative. Past medical history: As per history of present illness and as reviewed below otherwise noncontributory. Surgical history: As per history of present illness and as reviewed below otherwise noncontributory. Social history: No reported history of drug or alcohol abuse. Family history: As per history of present illness and as reviewed below otherwise noncontributory. Physical exam: General: Patient sitting comfortably in no acute distress and nontoxic appearing HEENT: Atraumatic, normocephalic, pupils reactive, negative for conjunctival pallor or scleral icterus, mucous membranes moist, throat clear, neck supple, nontender, trachea midline. No meningeal signs. Lungs: Clear to auscultation, breath sounds equal bilaterally, chest nontender. Heart: S1S2, regular, negative for clicks, rubs, or overt murmur. Abdomen: Soft, nondistended, nontender. Negative for masses or hepatosplenomegaly. Negative for costovertebral tenderness. No rigidity, rebound , guarding. Pelvis: Stable nontender. Genitourinary: Deferred. Rectal: Deferred. Extremities: Atraumatic, negative for cords or calf pain. Neurovascular unremarkable. Neuro: Awake, alert, oriented. Cranial nerves II through XII unremarkable. Cerebellum unremarkable. Motor and sensory unremarkable throughout. Exam nonfocal. Notes: Diagnostics: none Therapeutics: declined dental balls Prescriptions: none Impression: Dentalgia Definitive disposition and diagnosis as appropriate pending reevaluation and review of above. Teeth Pain Score (Numeric/FACES): 10 - Related Data Allergies Allergy/AdvReac Type Severity Reaction Status Date / Time Penicillins Allergy Rash Verified 09/11/19 17:45 hair dye Allergy Rash Uncoded 09/11/19 17:45 Home Meds: Home Meds . 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 Musculoskeletal History: Reports: None Neurological History: Reports: None Psychiatric History: Reports: None Endocrine/Metabolic History: Reports: None Hematologic History: Reports: None Immunologic History: Reports: None Oncologic (Cancer) History: Reports: None Dermatologic History: Reports: None - Infectious Disease History Infectious Disease History: Reports: None - Past Surgical History Head Surgeries/Procedures: Reports: None Social & Family History - Family History Family Medical History: Noncontributory - Tobacco Use Smoking Status *Q: Never Smoker - Caffeine Use Caffeine Use: Reports: None - Recreational Drug Use Recreational Drug Use: No ED ROS GENERAL - Review of Systems Review Of Systems: Comprehensive ROS is negative, except as noted in HPI. ED EXAM, GENERAL - Physical Exam Exam: See Below (see dictation) Course - Vital Signs Last Recorded V/S: Last Vital Signs Temp 97.4 F 09/11/19 18:04 Pulse 96 09/11/19 18:04 Resp 18 09/11/19 18:04 BP 111/75 09/11/19 18:04 Pulse Ox 98 09/11/19 18:04 - Orders/Labs/Meds Meds: Medications Discontinued Medications Generic Name Dose Route Start Last Admin Trade Name Freq PRN Reason Stop Dose Admin Benzocaine 2 each 09/11/19 17:52 Hurricaine One 20% MUCMEM 09/11/19 17:53 ONETIME ONE Lidocaine HCl 15 ml 09/11/19 17:52 Xylocaine 2% Viscous PO 09/11/19 17:53 ONETIME ONE Departure - Departure Time of Disposition: 17:58 Disposition: Home, Self-Care 01 Condition: Good Clinical Impression: Dentalgia - Discharge Information Instructions: Dental Abscess, [id number] Referrals: PCP,None [Primary Care Provider] - Forms: ED Department Discharge Additional Instructions: The following information is given to patients seen in the emergency department who are being discharged to home. This information is to outline your options for follow-up care. We provide all patients seen in our emergency department with a follow-up referral. The need for follow-up, as well as the timing and circumstances, are variable depending upon the specifics of your emergency department visit. If you don't have a primary care physician on staff, we will provide you with a referral. We always advise you to contact your personal physician following an emergency department visit to inform them of the circumstance of the visit and for follow-up with them and/or the need for any referrals to a consulting specialist. The emergency department will also refer you to a specialist when appropriate. This referral assures that you have the opportunity for follow-up care with a specialist. All of these measure are taken in an effort to provide you with optimal care, which includes your follow-up. Under all circumstances we always encourage you to contact your private physician who remains a resource for coordinating your care. When calling for follow-up care, please make the office aware that this follow-up is from your recent emergency room visit. If for any reason you are refused follow-up, please contact the [facility] Emergency Department at and asked to speak to the emergency department charge nurse. [facility] [address] [place] [id number] [place] [address] Continue antibiotic, tylenol, and dental balls as instructed Follow up with dentist Return to ED as needed as discussed Sepsis Event Note - Evaluation Sepsis Screening Result: No Definite Risk - Focused Exam Vital Signs: Vital Signs Temp Pulse Resp BP Pulse Ox 09/11/19 18:04 97.4 F 96 18 111/75 98 09/11/19 17:45 97.2 F 95 16 111/75 99 Date Exam was Performed: 09/11/19 Time Exam was Performed: 18:19
== END 2019-09-11 18:05 | disposition home or self-care (01) ==
LOC: MW.ED 17:21
DX: K08.89 Other specified disorders of teeth and supporting structures (principal); Z88.0 Allergy status to penicillin; Z91.09 Other allergy status, other than to drugs and biological substances
CPT/HCPCS: 99282

== ENCOUNTER 2020-01-06 22:54 | Inpatient (IN) | payer MEDICAID ==
[2020-01-07] MEDS ORDERED: Tranexamic Acid 1,000 MG in Sodium Chloride 0.9% 100 ML IV PRN (00:01)
[2020-01-07] MEDS ORDERED: Carboprost Tromethamine 250 MCG/1 ML Amp IM PRN (00:01)
[2020-01-07] MEDS ORDERED: Butorphanol 1 MG/ML SDV IVPUSH PRN (00:01)
[2020-01-07] MEDS ORDERED: Sodium Chloride 0.9% 10 ML Syringe FLUSH PRN (00:01)
[2020-01-07] MEDS ORDERED: Methylergonovine 0.2 MG/1 ML Amp IM PRN (00:01)
[2020-01-07] MEDS ORDERED: Ondansetron 4 MG/2 ML SDV IVPUSH PRN (00:01)
[2020-01-07] MEDS ORDERED: Water For Irrigation,Sterile 1,000 ML Container IRR PRN (00:01)
[2020-01-07] MEDS ORDERED: Terbutaline 1 MG/ML SDV SUBCUT PRN (00:01)
[2020-01-07] MEDS ORDERED: Sodium Chloride 0.9% 2.5 ML Syringe FLUSH PRN (00:01)
[2020-01-07] MEDS ORDERED: Misoprostol 200 MCG Tab PO PRN (00:01)
[2020-01-07] MEDS ORDERED: Sodium Chloride 0.9% 10 ML SDV IV PRN (00:01)
[2020-01-07] MEDS ORDERED: Lidocaine 1% 50 ML MDV INJECT PRN (00:01)
[2020-01-07] MEDS ORDERED: Oxytocin/0.9 % Sodium Chloride 30 UNIT/500 ML BAG IV SCH ×2 (00:15)
[2020-01-07] MEDS: Lactated Ringers 1,000 ML IV SCH ×3 (00:54→03:07)
[2020-01-07] MEDS ORDERED: Ropivacaine 0.2% PF 2 MG/ML 20 ML SDV ONE (03:16)
[2020-01-07] MEDS ORDERED: Bupivicaine/fentaNYL/NS 250 ML ONE (03:16)
--- NOTE | 2020-01-07 03:44 | PCM.PREANE ---
Preanesthetic Assessment - Procedure Proposed Procedure: labor epidural - Anesthesia/Transfusion/Family Hx Anesthesia History: No Prior Anesthesia Family History of Anesthesia Reaction: Yes Transfusion History: No Prior Transfusion(s) - Review of Systems General: No Symptoms Pulmonary: No Symptoms Cardiovascular: No Symptoms Gastrointestinal: No Symptoms Neurological: No Symptoms Other: Reports: None - Physical Assessment Height: 5 ft 1 in Weight: 55.792 kg ASA Class: 2 Mental Status: Alert & Oriented x3 Airway Class: Mallampati = 2 Dentition: Reports: Normal Dentition Thyro-Mental Finger Breadths: 2 Mouth Opening Finger Breadths: 2 ROM/Head Extension: Full Lungs: Clear to Auscultation, Normal Respiratory Effort - Lab Values: Laboratory Last Values WBC 12.84 K/uL (4.0-11.0) H 01/07/20 00:45 RBC 4.37 M/uL (4.30-5.90) 01/07/20 00:45 Hgb 11.9 g/dL (12.0-16.0) L 01/07/20 00:45 Hct 36.6 % (36.0-46.0) 01/07/20 00:45 MCV 83.8 fL (80.0-98.0) 04 00:45 MCH 27.2 pg (27.0-32.0) 01/07/20 00:45 MCHC 32.5 g/dL (31.0-37.0) 01/07/20 00:45 RDW Std Deviation 40.1 fl (28.0-62.0) 01/07/20 00:45 RDW Coeff of Charlette 14 % (11.0-15.0) 01/07/20 00:45 Plt Count 325 K/uL (150-400) 01/07/20 00:45 MPV 10.30 fL (7.40-12.00) 01/07/20 00:45 Membrane Rupture NEGATIVE 01/06/20 23:10 Blood Type B POSITIVE 01/07/20 00:45 Antibody Screen NEGATIVE 01/07/20 00:45 - Allergies Allergies/Adverse Reactions: Allergies Allergy/AdvReac Type Severity Reaction Status Date / Time Penicillins Allergy Rash Verified 09/11/19 17:45 hair dye Allergy Rash Uncoded 09/11/19 17:45 - Blood Blood Available: Yes Product(s) Available: PRBC - Acknowledgements Anesthesia Type Planned: Epidural Pt an Appropriate Candidate for the Planned Anesthesia: Yes Alternatives and Risks of Anesthesia Discussed w Pt/Guardian: Yes Pt/Guardian Understands and Agrees with Anesthesia Plan: Yes PreAnesthesia Questionnaire - Past Health History Medical/Surgical History: Denies Medical/Surgical History HEENT History: Reports: None Cardiovascular History: Reports: None Respiratory History: Reports: None Gastrointestinal History: Reports: None Genitourinary History: Reports: None 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 OB/BYN History: pt currently 20 weeks Musculoskeletal History: Reports: None Neurological History: Reports: None Psychiatric History: Reports: None Endocrine/Metabolic History: Reports: None Hematologic History: Reports: None Immunologic History: Reports: None Oncologic (Cancer) History: Reports: None Dermatologic History: Reports: None - Infectious Disease History Infectious Disease History: Reports: None - Past Surgical History Head Surgeries/Procedures: Reports: None - SUBSTANCE USE Smoking Status *Q: Current Every Day Smoker Tobacco Use Within Last Twelve Months: Cigarettes Second Hand Smoke Exposure: Yes Recreational Drug Use History: No - HOME MEDS Home Medications: Home Meds Pnv No.95/Ferrous Fum/Folic AC [ Caplet] 1 tab PO DAILY 01/06/20 [ History] - CURRENT (IN HOUSE) MEDS Current Meds: Current Medications Butorphanol Tartrate (Stadol) 1 mg IVPUSH Q1H PRN PRN Reason: Pain Carboprost Tromethamine (Hemabate Ds) 250 mcg IM ASDIRECTED PRN PRN Reason: Post Hemorrhage Tranexamic Acid 1,000 mg/ (Sodium Chloride) 110 mls @ 660 mls/hr IV ONETIME PRN PRN Reason: Bleeding Lactated Ringer's (Ringers, Lactated) 1,000 mls @ 150 mls/hr IV ASDIRECTED [facility] Last Admin: 01/07/20 03:07 Dose: 500 mls/hr Oxytocin/Sodium Chloride (Oxytocin 30 Unit/500 Ml-Ns) 30 unit in 500 mls @ 999 mls/hr IV TITRATE [facility] Oxytocin/Sodium Chloride (Oxytocin 30 Unit/500 Ml-Ns) 30 unit in 500 mls @ 2 mls/hr IV TITRATE [facility]; Protocol Lidocaine HCl (Xylocaine 1%) 50 ml INJECT ONETIME PRN PRN Reason: Laceration repair Methylergonovine Maleate (Methergine) 0.2 mg IM ASDIRECTED PRN PRN Reason: Post Hemorrhage Misoprostol (Cytotec) 200 mcg PO ONETIME PRN PRN Reason: Post Hemorrhage Ondansetron HCl (Zofran) 4 mg IVPUSH Q6H PRN PRN Reason: Nausea/Vomiting Sodium Chloride (Saline Flush) 10 ml FLUSH ASDIRECTED PRN PRN Reason: Keep Vein Open Sodium Chloride (Saline Flush) 2.5 ml FLUSH ASDIRECTED PRN PRN Reason: Keep Vein Open Sodium Chloride (Normal Saline) 10 ml IV ASDIRECTED PRN PRN Reason: IV Use Sterile Water (Sterile Water For Irrigation) 1,000 ml IRR ASDIRECTED PRN PRN Reason: delivery Terbutaline Sulfate (Brethine) 0.25 mg SUBCUT ASDIRECTED PRN PRN Reason: Tacysystole Discontinued Medications Fentanyl/Bupivacaine HCl (Fentanyl/Bupivacaine/Ns 2 Mcg-0.125% 250 Ml) Confirm Administered Dose 250 mls @ as directed .ROUTE .STK-MED ONE Stop: 01/07/20 03:17 Ropivacaine (Naropin 0.2%) Confirm Administered Dose 20 ml .ROUTE .STK-MED ONE Stop: 01/07/20 03:17
[2020-01-07] MEDS ORDERED: Lanolin 100% Cream 7 GM Tube TOP PRN (06:51)
[2020-01-07] MEDS ORDERED: Docusate Sodium 100 MG Cap PO PRN (06:51)
[2020-01-07] MEDS ORDERED: Ibuprofen 800 MG Tab PO PRN (06:51)
[2020-01-07] MEDS ORDERED: Acetaminophen 500 MG Tab PO PRN ×2 (06:51)
[2020-01-07] MEDS ORDERED: Ibuprofen 400 MG Tab PO PRN (06:51)
[2020-01-07] MEDS ORDERED: Bisacodyl 10 MG Supp RECTAL PRN (06:51)
[2020-01-07] MEDS ORDERED: Witch Hazel Medicated Pads 40/Jar TOP PRN (06:51)
[2020-01-07] MEDS ORDERED: Benzocaine/Menthol 20%-0.5% Spray 78 GM Cannister TOP PRN (06:51)
--- NOTE | 2020-01-07 08:18 | OR ---
SURGEON: Gary Tapia MD DATE OF PROCEDURE: 01/07/2020 INDICATION OF THE PROCEDURE: A 19-year-old, G2, P1-0-0-1 at 39 weeks and 4 days, presenting in spontaneous labor. The patient had mild contractions, was 5cm dilated. She had otherwise uncomplicated and was GBS negative. She had AROM with clear fluid for augmentation. She received an epidural for pain control. The patient had category 1 tracing. She progressed to fully dilated and began pushing with contractions. PREOPERATIVE DIAGNOSIS: Vasquez intrauterine at 39 weeks and 4 days. POSTOPERATIVE DIAGNOSIS: Vasquez intrauterine at 39 weeks and 4 days. PROCEDURE PERFORMED: Normal spontaneous vaginal delivery. ANESTHESIA: Epidural. FINDINGS: Viable female , weight of 5 pounds 9 ounces. score of 8 and 9. DESCRIPTION OF THE PROCEDURE: The patient pushed for approximately 25 minutes with good descent. The head delivered over an intact perineum in occiput anterior position, restituted ROT. Anterior shoulder delivered easily, followed by posterior shoulder and remaining body. The baby was placed on the maternal chest and evaluated by awaiting nursery staff. The baby was suctioned and stimulated. It was pink, crying and moving all extremities after delivery. Umbilical cord was clamped and cut after 60 seconds and no longer pulsating. The cord gases were obtained. The placenta was removed with gentle traction on the umbilical cord. It was found to be intact with 3-vessel cord. The fundus was firm and at the umbilicus and the bleeding looked light. There was no vaginal lacerations noted. The patient tolerated the procedure well, was given care instructions. BRITTNEY / RAFAEL /[id number] PRABHU
--- NOTE | 2020-01-07 10:40 | PCM.POSTAN ---
POST ANESTHESIA ASSESSMENT - MENTAL STATUS Mental Status: Alert, Oriented - RESPIRATORY Respiratory Status: Respiratory Rate WNL, Airway Patent, O2 Saturation Stable - CARDIOVASCULAR CV Status: Pulse Rate WNL, Blood Pressure Stable - GASTROINTESTINAL GI Status: No Symptoms - POST OP HYDRATION Hydration Status: Adequate & Stable
--- NOTE | 2020-01-07 13:53 | PCM48HPAN ---
Post Anesthesia Note - EVALUATION WITHIN 48HRS OF ANESTHETIC Vital Signs in Normal Range: Yes Patient Participated in Evaluation: Yes Respiratory Function Stable: Yes Airway Patent: Yes Cardiovascular Function Stable: Yes Hydration Status Stable: Yes Pain Control Satisfactory: Yes Nausea and Vomiting Control Satisfactory: Yes Mental Status Recovered: Yes
--- NOTE | 2020-01-08 06:09 | PCM.PNPP ---
- General Info Date of Service: 01/08/20 Subjective Update: Patient doing well. Rates pain as 3/10, mild cramping. Lochia decreased. Patient reports mood good, RN reports nurse overwhelmed & cried yesterday. Bottle feeding. Functional Status: Reports: Pain Controlled, Tolerating Diet, Ambulating, Urinating - Review of Systems General: Reports: No Symptoms HEENT: Reports: No Symptoms Pulmonary: Reports: No Symptoms Cardiovascular: Reports: No Symptoms Gastrointestinal: Reports: No Symptoms Genitourinary: Reports: No Symptoms Musculoskeletal: Reports: No Symptoms Skin: Reports: No Symptoms Neurological: Reports: No Symptoms Psychiatric: Reports: No Symptoms - Patient Data Vital Signs - Most Recent: Last Vital Signs Temp 36.4 C 01/08/20 04:00 Pulse 79 01/08/20 04:00 Resp 16 01/08/20 04:00 BP 110/70 01/08/20 04:00 Pulse Ox 98 01/08/20 04:00 Weight - Most Recent: 55.792 kg Lab Results - Last 24 Hours: Laboratory Results - last 24 hr 01/08/20 Range/Units 05:07 Hgb 10.0 L (12.0-16.0) g/dL Hct 31.6 L (36.0-46.0) % Med Orders - Current: Current Medications Acetaminophen (Tylenol Extra Strength) 500 mg PO Q4H PRN PRN Reason: Pain Acetaminophen (Tylenol Extra Strength) 1,000 mg PO Q4H PRN PRN Reason: Pain Benzocaine/Menthol (Dermoplast Pain Relief 20%-0.5% [place]) 78 gm TOP ASDIRECTED PRN PRN Reason: Perineal Comfort Measure Bisacodyl (Dulcolax) 10 mg RECTAL ONETIME PRN PRN Reason: Constipation Butorphanol Tartrate (Stadol) 1 mg IVPUSH Q1H PRN PRN Reason: Pain Carboprost Tromethamine (Hemabate Ds) 250 mcg IM ASDIRECTED PRN PRN Reason: Post Hemorrhage Docusate Sodium (Colace) 100 mg PO BID PRN PRN Reason: Constipation Emollient Ointment (Lansinoh Hpa) 0 gm TOP ASDIRECTED PRN PRN Reason: Sore Nipples Tranexamic Acid 1,000 mg/ (Sodium Chloride) 110 mls @ 660 mls/hr IV ONETIME PRN PRN Reason: Bleeding Lactated Ringer's (Ringers, Lactated) 1,000 mls @ 150 mls/hr IV ASDIRECTED [facility] Last Admin: 01/07/20 03:07 Dose: 500 mls/hr Oxytocin/Sodium Chloride (Oxytocin 30 Unit/500 Ml-Ns) 30 unit in 500 mls @ 999 mls/hr IV TITRATE [facility] Last Admin: 01/07/20 06:35 Dose: 999 mls/hr Oxytocin/Sodium Chloride (Oxytocin 30 Unit/500 Ml-Ns) 30 unit in 500 mls @ 2 mls/hr IV TITRATE [facility]; Protocol Ibuprofen (Motrin) 400 mg PO Q4H PRN PRN Reason: Pain Ibuprofen (Motrin) 800 mg PO Q6H PRN PRN Reason: Pain Lidocaine HCl (Xylocaine 1%) 50 ml INJECT ONETIME PRN PRN Reason: Laceration repair Methylergonovine Maleate (Methergine) 0.2 mg IM ASDIRECTED PRN PRN Reason: Post Hemorrhage Misoprostol (Cytotec) 200 mcg PO ONETIME PRN PRN Reason: Post Hemorrhage Ondansetron HCl (Zofran) 4 mg IVPUSH Q6H PRN PRN Reason: Nausea/Vomiting Sodium Chloride (Saline Flush) 10 ml FLUSH ASDIRECTED PRN PRN Reason: Keep Vein Open Sodium Chloride (Saline Flush) 2.5 ml FLUSH ASDIRECTED PRN PRN Reason: Keep Vein Open Sodium Chloride (Normal Saline) 10 ml IV ASDIRECTED PRN PRN Reason: IV Use Sterile Water (Sterile Water For Irrigation) 1,000 ml IRR ASDIRECTED PRN PRN Reason: delivery Terbutaline Sulfate (Brethine) 0.25 mg SUBCUT ASDIRECTED PRN PRN Reason: Tacysystole Witch Patience (Tucks) 1 pad TOP ASDIRECTED PRN PRN Reason: comfort care Discontinued Medications Fentanyl/Bupivacaine HCl (Fentanyl/Bupivacaine/Ns 2 Mcg-0.125% 250 Ml) Confirm Administered Dose 250 mls @ as directed .ROUTE .STK-MED ONE Stop: 01/07/20 03:17 Last Admin: 01/07/20 23:31 Dose: Not Given Ropivacaine (Naropin 0.2%) Confirm Administered Dose 20 ml .ROUTE .STK-MED ONE Stop: 01/07/20 03:17 Last Admin: 01/07/20 23:31 Dose: Not Given - Infant Interaction Infant Disposition, : [place] to Nursery Infant Interaction: Not Interacting Feeding: Bottle Fed Support Person: Significant Other - Recovery Exam Fundal Tone: Firm Fundal Level: 2 Fingerbreadths Below Umbilicus Fundal Placement: Midline Lochia Amount: Scant Lochia Color: Rubra/Red Bladder Status: Voiding Urinary Elimination: Voided - Exam General: Alert, Oriented Lungs: Clear to Auscultation, Normal Respiratory Effort Cardiovascular: Regular Rate, Regular Rhythm GI/Abdominal Exam: Soft, Non-Tender Extremities: No Pedal Edema Skin: Warm, Dry, Intact Neurological: No New Focal Deficit Psy/Mental Status: Alert, Normal Affect, Normal Mood - Problem List & Annotations (1) Vaginal delivery SNOMED Code(s): 969083272 Code(s): O80 - ENCOUNTER FOR FULL-TERM UNCOMPLICATED DELIVERY Status: Acute Current Visit: Yes - Problem List Review Problem List Initiated/Reviewed/Updated: Yes - Assessment Assessment:: 19yo s/p , PPD#1 - Plan Plan:: Patient desires discharge home today, reviewed discharge instructions. Patient without questions or concerns.
== END 2020-01-08 12:32 | disposition home or self-care (01) | DRG 807 ==
LOC: MW.OBCHECK 22:54 → MW.OB 22:54 → MW.OBCHECK 23:57 → OBSVTOIN 01-07 06:33 → MW.OB 01-07 12:19
PROVIDERS: ADMIT Obstetrics & Gynecology; ATTEND Obstetrics & Gynecology
PROC: 10E0XZZ Delivery of Products of Conception, External Approach (ICD-10-PCS; principal; 2020-01-07)
PROC: 10907ZC Drainage of Amniotic Fluid, Therapeutic from Products of Conception, Via Natural or Artificial Opening (ICD-10-PCS; 2020-01-07)
PROC: 3E0R3BZ Introduction of Anesthetic Agent into Spinal Canal, Percutaneous Approach (ICD-10-PCS; 2020-01-07)
DX: O99.334 Smoking (tobacco) complicating childbirth (principal); Z37.0 Single live birth; F17.210 Nicotine dependence, cigarettes, uncomplicated; Z3A.39 39 weeks gestation of pregnancy; Z88.0 Allergy status to penicillin; Z88.8 Allergy status to other drugs, medicaments and biological substances
CPT/HCPCS: 01967; 36415; 51702; 59025; 59409; 84112; 85014; 85018; 85027; 86592; 86593; 86850; 86900; 86901; J2590; J7120

== ENCOUNTER 2021-09-26 19:43 | Emergency (ER) | payer MEDICAID | END 2021-09-26 21:25 | disposition home or self-care (01) | LOC: MW.ED 19:43 | DX: L25.9 Unspecified contact dermatitis, unspecified cause (principal); Z88.0 Allergy status to penicillin; Z91.048 Other nonmedicinal substance allergy status | CPT/HCPCS: 99282 ==

== ENCOUNTER 2021-11-27 17:31 | Emergency (ER) | payer BC, MEDICAID ==
[2021-11-27] MEDS ORDERED: Ketorolac 60 MG/2 ML SDV IM ONE (17:58)
[2021-11-27] MEDS ORDERED: Benzocaine 20% Topical Spray UD MUCMEM ONE (17:59)
[2021-11-27] MEDS ORDERED: Lidocaine 2% Viscous Solution 15 ML UD PO ONE (17:59)
== END 2021-11-27 18:15 | disposition home or self-care (01) ==
LOC: MW.ED 17:31
DX: M27.3 Alveolitis of jaws (principal); Z88.0 Allergy status to penicillin; Z91.048 Other nonmedicinal substance allergy status
CPT/HCPCS: 96372; 99282; A9270; J1885

== ENCOUNTER 2021-12-21 10:30 | Emergency (ER) | payer BC, MEDICAID ==
[2021-12-21] MEDS ORDERED: Sodium Chloride 0.9% 1,000 ML IV ONE (10:42)
[2021-12-21 11:22] LABS: BLOOD UREA NITROGEN,BUN 7 mg/dL (7.0-18.0); CHLORIDE,CL 102 mmol/L (98-107); GLUCOSE RANDOM 95 mg/dL (74-106); LIPASE 267 U/L (73-393); POTASSIUM,K 3.4 mmol/L (3.5-5.1); SODIUM,NA 138 mmol/L (136-145)
[2021-12-21] MEDS ORDERED: Iopamidol 755 MG/ML 500 ML Multipack Bottle IVPUSH STA (12:04)
== END 2021-12-21 15:20 | disposition home or self-care (01) ==
LOC: MW.ED 10:30
DX: K52.9 Noninfective gastroenteritis and colitis, unspecified (principal); Z88.0 Allergy status to penicillin
CPT/HCPCS: 36415; 74177; 80053; 81003; 83605; 83690; 84703; 85025; 99284; J7030; Q9967; 99283

== ENCOUNTER 2022-08-26 18:16 | Emergency (ER) | payer BC, MEDICAID | END 2022-08-26 20:45 | disposition home or self-care (01) | LOC: MW.ED 18:16 | DX: H66.001 Acute suppurative otitis media without spontaneous rupture of ear drum, right ear (principal); Z88.0 Allergy status to penicillin; Z91.041 Radiographic dye allergy status; Z79.899 Other long term (current) drug therapy; Z86.16 Personal history of COVID-19 | CPT/HCPCS: 99282 ==

== ENCOUNTER 2022-12-10 09:54 | Emergency (ER) | payer BC, MEDICAID ==
[2022-12-10] MEDS ORDERED: Dexamethasone 10 MG/ML SDV PO ONE (10:11)
[2022-12-10] MEDS ORDERED: Ibuprofen 400 MG Tab PO ONE (10:12)
[2022-12-10] MEDS ORDERED: Acetaminophen 325 MG Tab PO ONE (10:12)
[2022-12-10] MEDS ORDERED: Lactated Ringers 1,000 ML IV SCH (10:15)
[2022-12-10] MEDS ORDERED: Ibuprofen Susp 100 MG/5 ML 10 ML UD Cup PO ONE (10:25)
[2022-12-10] MEDS ORDERED: Acetaminophen 325 MG/10.15 ML ML PO ONE (10:25)
[2022-12-10 11:03] LABS: CORONAVIRUS COVID-19 NAA NEGATIVE (NEGATIVE); INFLUENZA A NAA NEGATIVE (NEGATIVE); INFLUENZA B NAA NEGATIVE (NEGATIVE); RESPIRATORY SYNCYTIAL VIR NAA NEGATIVE (NEGATIVE)
== END 2022-12-10 13:00 | disposition home or self-care (01) ==
LOC: MW.ED 09:54
DX: J02.9 Acute pharyngitis, unspecified (principal); Z88.0 Allergy status to penicillin; Z91.048 Other nonmedicinal substance allergy status; Z20.822 Contact with and (suspected) exposure to COVID-19
CPT/HCPCS: 0241U; 96360; 99283; A9270; J7120; J8540

== ENCOUNTER 2022-12-10 18:24 | Emergency (ER) | payer BC, MEDICAID ==
[2022-12-10] MEDS ORDERED: Sodium Chloride 0.9% 10 ML Syringe FLUSH PRN (19:25)
[2022-12-10] MEDS ORDERED: Sodium Chloride 0.9% 2.5 ML Syringe FLUSH PRN (19:25)
[2022-12-10] MEDS ORDERED: Sodium Chloride 0.9% 1,000 ML IV ONE (19:25)
[2022-12-10] MEDS ORDERED: Ketorolac 30 MG/ML SDV IVPUSH ONE (19:25)
[2022-12-10] MEDS ORDERED: Acetaminophen 325 MG Tab PO ONE (19:26)
[2022-12-10 21:07] LABS: BLOOD UREA NITROGEN,BUN 13 mg/dL (7.0-18.0); CHLORIDE,CL 107 mmol/L (98-107); GLUCOSE RANDOM 115 mg/dL (74-106); POTASSIUM,K 3.7 mmol/L (3.5-5.1); SODIUM,NA 141 mmol/L (136-145)
[2022-12-10 21:16] LABS: ESTIMATED GFR 128 mL/min (>60)
[2022-12-10] MEDS ORDERED: Azithromycin 250 MG Tab PO ONE (22:01)
== END 2022-12-10 22:19 | disposition home or self-care (01) ==
LOC: MW.ED 18:24
DX: J02.0 Streptococcal pharyngitis (principal); Z88.0 Allergy status to penicillin; Z91.048 Other nonmedicinal substance allergy status; Z86.16 Personal history of COVID-19
CPT/HCPCS: 36415; 80053; 84703; 85025; 86308; 87651; 96361; 96374; 99283; A9270; J1885; J3490; J7030; 93010; 99284

== ENCOUNTER 2022-12-15 11:18 | Emergency (ER) | payer BC, MEDICAID ==
[2022-12-15] MEDS ORDERED: Sodium Chloride 0.9% 10 ML Syringe FLUSH PRN (11:35)
[2022-12-15] MEDS ORDERED: Sodium Chloride 0.9% 2.5 ML Syringe FLUSH PRN (11:35)
[2022-12-15 12:11] LABS: CARBON DIOXIDE,CO2 22.7 mmol/L (21.0-32.0); POTASSIUM,K 3.1 mmol/L (3.5-5.1)
[2022-12-15] MEDS ORDERED: Iopamidol 755 MG/ML 500 ML Multipack Bottle IVPUSH ONE (13:10)
== END 2022-12-15 14:34 | disposition home or self-care (01) ==
LOC: MW.ED 11:18
DX: J03.90 Acute tonsillitis, unspecified (principal); Z88.0 Allergy status to penicillin; Z91.048 Other nonmedicinal substance allergy status; Z72.0 Tobacco use; Z86.16 Personal history of COVID-19
CPT/HCPCS: 36415; 70491; 80048; 85025; 99283; J3490; Q9967; 99284

== ENCOUNTER 2023-01-01 19:13 | Emergency (ER) | payer BC, MEDICAID ==
[2023-01-01] MEDS ORDERED: Sodium Chloride 0.9% 1,000 ML IV ONE (19:16)
[2023-01-01] MEDS ORDERED: Nitrofurantoin Monohydrate/Macrocrystalline 100 MG Cap PO ONE (20:10)
[2023-01-01] MEDS ORDERED: LORazepam 1 MG Tab PO ONE (20:10)
[2023-01-01 20:16] LABS: BLOOD UREA NITROGEN,BUN 13 mg/dL (7.0-18.0); CARBON DIOXIDE,CO2 25.7 mmol/L (21.0-32.0); CHLORIDE,CL 104 mmol/L (98-107); GLUCOSE RANDOM 91 mg/dL (74-106); POTASSIUM,K 4.2 mmol/L (3.5-5.1); SODIUM,NA 139 mmol/L (136-145)
[2023-01-01 20:17] LABS: ESTIMATED GFR 124 mL/min (>60)
[2023-01-01 20:53] LABS: CORONAVIRUS COVID-19 NAA NEGATIVE (NEGATIVE); INFLUENZA A NAA NEGATIVE (NEGATIVE); INFLUENZA B NAA NEGATIVE (NEGATIVE); RESPIRATORY SYNCYTIAL VIR NAA NEGATIVE (NEGATIVE)
== END 2023-01-01 20:47 | disposition home or self-care (01) ==
LOC: MW.ED 19:13
DX: R07.9 Chest pain, unspecified (principal); F41.9 Anxiety disorder, unspecified; N39.0 Urinary tract infection, site not specified; F17.210 Nicotine dependence, cigarettes, uncomplicated; Z86.16 Personal history of COVID-19; Z79.899 Other long term (current) drug therapy; Z88.0 Allergy status to penicillin; Z91.048 Other nonmedicinal substance allergy status; Z20.822 Contact with and (suspected) exposure to COVID-19
CPT/HCPCS: 0241U; 36415; 71045; 80053; 80305; 81001; 81025; 84443; 84484; 85025; 87086; 93005; 96360; 99285; A9270; J7030; 93010; 99283

== ENCOUNTER 2023-01-03 12:43 | Emergency (ER) | payer BC, MEDICAID ==
[2023-01-03] MEDS ORDERED: LORazepam 2 MG/ML SDV IM ONE (14:41)
== END 2023-01-03 15:07 | disposition home or self-care (01) ==
LOC: MW.ED 12:43
DX: F41.0 Panic disorder [episodic paroxysmal anxiety] (principal); Z79.899 Other long term (current) drug therapy; Z86.16 Personal history of COVID-19; Z88.0 Allergy status to penicillin; Z91.048 Other nonmedicinal substance allergy status
CPT/HCPCS: 93005; 96372; 99283; J2060; 93010

== ENCOUNTER 2023-01-04 18:05 | Emergency (ER) | payer BC, MEDICAID ==
[2023-01-04] MEDS ORDERED: LORazepam 2 MG/ML SDV IM ONE (18:12)
[2023-01-04] MEDS ORDERED: Sodium Chloride 0.9% 2.5 ML Syringe FLUSH PRN (19:02)
[2023-01-04] MEDS ORDERED: Sodium Chloride 0.9% 10 ML Syringe FLUSH PRN (19:02)
[2023-01-04] MEDS ORDERED: Iopamidol 755 MG/ML 500 ML Multipack Bottle IVPUSH STA ×2 (20:42→20:44)
== END 2023-01-04 21:35 | disposition home or self-care (01) ==
LOC: MW.ED 18:05
DX: F41.9 Anxiety disorder, unspecified (principal); Z88.0 Allergy status to penicillin; Z91.048 Other nonmedicinal substance allergy status; Z86.16 Personal history of COVID-19
CPT/HCPCS: 36415; 71275; 85379; 93005; 96372; 99285; J2060; J3490; Q9967; 93010; 99283

== ENCOUNTER 2023-01-05 20:19 | Emergency (ER) | payer BC, MEDICAID | END 2023-01-05 21:06 | disposition home or self-care (01) | LOC: MW.ED 20:19 | DX: T43.591A Poisoning by other antipsychotics and neuroleptics, accidental (unintentional), initial encounter (principal); F41.9 Anxiety disorder, unspecified; Z88.0 Allergy status to penicillin; Z91.048 Other nonmedicinal substance allergy status; Z86.16 Personal history of COVID-19 | CPT/HCPCS: 93005; 93010; 99283; 99284 ==

== ENCOUNTER 2023-01-06 10:37 | Emergency (ER) | payer BC, MEDICAID ==
[2023-01-06] MEDS ORDERED: LORazepam 2 MG/ML SDV IM ONE (10:58)
[2023-01-06] MEDS ORDERED: Haloperidol Lactate 5 MG/ML SDV IM ONE (10:58)
[2023-01-06 11:54] LABS: ACETAMINOPHEN <2.0 ug/mL; BLOOD UREA NITROGEN,BUN 9 mg/dL (7.0-18.0); CARBON DIOXIDE,CO2 24.8 mmol/L (21.0-32.0); CHLORIDE,CL 104 mmol/L (98-107); GLUCOSE RANDOM 89 mg/dL (74-106); POTASSIUM,K 4.4 mmol/L (3.5-5.1); SODIUM,NA 140 mmol/L (136-145)
[2023-01-06 11:56] LABS: ESTIMATED GFR 124 mL/min (>60)
== END 2023-01-06 16:01 ==
LOC: MW.ED 10:37
DX: R45.851 Suicidal ideations (principal); Z88.0 Allergy status to penicillin; Z91.048 Other nonmedicinal substance allergy status; Z86.16 Personal history of COVID-19; Z20.822 Contact with and (suspected) exposure to COVID-19
CPT/HCPCS: 36415; 80053; 80143; 80179; 80305; 80307; 81001; 83735; 84443; 84484; 84703; 85025; 87635; 93005; 96372; 99285; J1630; J2060; 93010; U0002